=== PATIENT | female | born 1960 | race Caucasian/White ===

== ENCOUNTER 2021-02-01 17:41 | Inpatient (IN) | payer OTHER ==
[~2021-02-01 17:41] MED LIST: ADVIL200 M1 PO; ANTIVERT25 MG PO; AUGMENTIN 500-1 EACH PO; BACLOFEN 10MG T10 MG PO; BENTYL10 MG PO; BUSPAR5 MG PO; CIPRO500 MG PO; COLACE100 MG PO; COMBIVENT RESPIM4 GM INH; HYDROCODON-ACE1 EAC4 PO; K-DUR20 MEQ PO; LEVAQUIN500 MG PO; MEDROL 4MG DOSEP4 MG PO; METRONIDAZOLE500 MG PO; MOXIFLOXACIN H400 MG PO; NORCO 5-325 TA1 EACH PO; ONDANSETRON HCL4 MG PO; PERCOCET 5-3251 EACH PO; PRILOSEC20 MG PO; PRINIVIL10 MG PO; REMERON15 MG PO; SINGULAIR10 MG PO; SYNTHROID25 MCG PO; VALACYCLOVIR1000 MG PO; VENLAFAXINE HC225 MG PO; VENTOLIN (2.5 MG/3 M INH; ZOFRAN8 MG PO
[2021-02-01 18:14] LABS: BASOPHIL 0.6 % (0-2); HGB 14.9 g/dl (12.5-16.0); LYMPHOCYTE 21.1 % (15-48); MCH 35.1 pg (25.0-31.0); MCHC 34.7 g/dL (32.0-36.0); MCV 101.4 fL (78.0-100.0); MONOCYTE 7.4 % (0-12); MPV 8.9 fL (6.0-9.5); NEUTROPHIL 69.6 % (41-80); NRBC 0; PLT 273 K/uL (150-400); RBC 4.24 M/uL (4.20-5.40); RDW 14.6 % (11.5-14.0); WBC 12.2 K/uL (4.0-10.5)
[2021-02-01 18:19] LABS: INR 1.04 (0.9-1.2); PROTHROMBIN TIME 12.9 SECONDS (11.4-13.6)
[2021-02-01 18:21] LABS: D-DIMER 2.92 ug/mLFEU (0.00-0.41)
[2021-02-01 18:28] LABS: ALBUMIN 3.3 g/dL (3.4-5.0); ALKALINE PHOSHATASE 135 U/L (46-116); ALT 41 U/L (14-59); AST 50 U/L (15-37); BILIRUBIN - TOTAL 0.3 mg/dL (0.2-1.0); BUN 5 mg/dL (7-18); BUN/CREAT RATIO (CALC) 10.2 RATIO; CHLORIDE 98 mmol/L (98-107); CO2 (BICARBONATE) 28 mmol/L (21-32); CREATININE 0.49 mg/dL (0.51-0.95); GLOBULIN (CALCULATION) 3.5 g/dL; GLUCOSE 146 mg/dL (74-106); LIPASE >2250 U/L (73-393); POTASSIUM 2.6 mmol/L (3.5-5.1); TOTAL PROTEIN 6.8 g/dL (6.4-8.2)
[2021-02-01 19:34] LABS: BILIRUBIN NEGATIVE (NEGATIVE); BLOOD NEGATIVE Ery/uL (NEGATIVE); CLARITY CLEAR (CLEAR); COLOR YELLOW (YELLOW); GLUCOSE (U) NORMAL (NORMAL); LEUKOCYTES NEGATIVE Leu/uL (NEGATIVE); NITRITE NEGATIVE (NEGATIVE); PROTEIN NEGATIVE (NEGATIVE); SPECIFIC GRAVITY <=1.005 (1.001-1.030); UROBILINOGEN 0.2 mg/dL (0.2-1.0)
[2021-02-01 20:14] LABS: LACTIC ACID 3.9 mmol/L (0.4-1.9)
[2021-02-01] MEDS ORDERED: KLOR-CON M20 T20 MEQ PO (22:07)
[2021-02-01] MEDS ORDERED: ONDANSETRON ODT4 MG PO (22:08)
[2021-02-01] MEDS ORDERED: ANTIVERT25 MG PO (22:10)
[2021-02-01] MEDS ORDERED: GAS RELIEF 8080 MG PO (22:12)
--- NOTE | 2021-02-01 22:40 | NUR ---
Spoke with Ed physician just prior to patient going upstairs regaurding Patient flagging for possible sepsis r/t elevated hr, elevated wbc and lactic acid. Asked ED physician () if patient would be recieving antibiotics for sepsis r/t vs and labs. Md said no because patient had pancreatitis. Notified primary Rn on tcu that would be caring for this patient of sepsis flags, lactic and md notification and response at this time for further and close observation. Upon patient arrival to tcu, warehouse stock clerk helped get patient into bed, obtain vs, and place on monitor. Patient awake/ alet. Patient ambulated to bed. Hr remains mildly elvated. Bp is wnl. Nightshift hospitalist on unit and reviewing chart at this time and is aware.
[2021-02-02 05:28] LABS: BASOPHIL 0.5 % (0-2); EOSINOPHIL 1.3 % (0-5); HCT 36.8 % (37.0-47.0); HGB 12.6 g/dl (12.5-16.0); MCHC 34.2 g/dL (32.0-36.0); MCV 102.2 fL (78.0-100.0); MONOCYTE 8.8 % (0-12); NEUTROPHIL 78.1 % (41-80); NRBC 0; PLT 207 K/uL (150-400); RDW 14.8 % (11.5-14.0); WBC 10.8 K/uL (4.0-10.5)
[2021-02-02 05:46] LABS: ALBUMIN 2.6 g/dL (3.4-5.0); ALKALINE PHOSHATASE 113 U/L (46-116); ALT 31 U/L (14-59); AST 39 U/L (15-37); BILIRUBIN - TOTAL 0.6 mg/dL (0.2-1.0); BUN 4 mg/dL (7-18); BUN/CREAT RATIO (CALC) 8.3 RATIO; CHLORIDE 104 mmol/L (98-107); CHOLESTEROL 126 mg/dL (<200); CO2 (BICARBONATE) 27 mmol/L (21-32); CREATININE 0.48 mg/dL (0.51-0.95); GLOBULIN (CALCULATION) 2.9 g/dL; GLUCOSE 102 mg/dL (74-106); HDL 24 mg/dL (40-60); LDL - DIRECT 72 mg/dL (<100); LIPASE >2250 U/L (73-393); MAGNESIUM 0.9 mg/dL (1.8-2.4); PHOSPHORUS 3.5 mg/dL (2.6-4.7); POTASSIUM 3.1 mmol/L (3.5-5.1); TOTAL PROTEIN 5.5 g/dL (6.4-8.2); TRIGLYCERIDES 152 mg/dL (<150)
[2021-02-03 05:55] LABS: BASOPHIL 0.5 % (0-2); EOSINOPHIL 2.7 % (0-5); HCT 34.1 % (37.0-47.0); HGB 11.5 g/dl (12.5-16.0); LYMPHOCYTE 21.3 % (15-48); MCH 34.8 pg (25.0-31.0); MCHC 33.7 g/dL (32.0-36.0); MCV 103.3 fL (78.0-100.0); MONOCYTE 8.8 % (0-12); MPV 9.5 fL (6.0-9.5); NEUTROPHIL 66.5 % (41-80); NRBC 0; PLT 185 K/uL (150-400); RDW 14.6 % (11.5-14.0); WBC 8.3 K/uL (4.0-10.5)
[2021-02-03 06:11] LABS: IRON % SATURATION 29.2 %SAT (20-50)
[2021-02-03 06:41] LABS: ALBUMIN 2.4 g/dL (3.4-5.0); BILIRUBIN - TOTAL 1.2 mg/dL (0.2-1.0); BUN/CREAT RATIO (CALC) 8.5 RATIO; CREATININE 0.47 mg/dL (0.51-0.95); GLOBULIN (CALCULATION) 3.1 g/dL; MAGNESIUM 1.5 mg/dL (1.8-2.4); PHOSPHORUS 2.8 mg/dL (2.6-4.7); POTASSIUM 3.1 mmol/L (3.5-5.1); TOTAL PROTEIN 5.5 g/dL (6.4-8.2)
--- NOTE | 2021-02-03 10:14 | NUR ---
02/03/21 Ms. Reyes was independent in the home and community prior to admission. She shares a home with a roommate and works at the [employer]. Please monitor for home 02 needs.
[2021-02-04 03:53] LABS: BASOPHIL 0.5 % (0-2); EOSINOPHIL 1.9 % (0-5); HGB 11.8 g/dl (12.5-16.0); MCH 35.1 pg (25.0-31.0); MCHC 33.7 g/dL (32.0-36.0); MCV 104.2 fL (78.0-100.0); MONOCYTE 8.5 % (0-12); MPV 9.1 fL (6.0-9.5); NEUTROPHIL 65.8 % (41-80); NRBC 0; PLT 197 K/uL (150-400); RBC 3.36 M/uL (4.20-5.40); RDW 14.5 % (11.5-14.0); WBC 7.9 K/uL (4.0-10.5)
[2021-02-04 04:12] LABS: ALBUMIN 2.6 g/dL (3.4-5.0); BILIRUBIN - TOTAL 1.1 mg/dL (0.2-1.0); BUN/CREAT RATIO (CALC) 4.5 RATIO; CREATININE 0.44 mg/dL (0.51-0.95); GLOBULIN (CALCULATION) 3.3 g/dL; MAGNESIUM 1.5 mg/dL (1.8-2.4); POTASSIUM 3.1 mmol/L (3.5-5.1); TOTAL PROTEIN 5.9 g/dL (6.4-8.2)
--- NOTE | 2021-02-04 05:46 | NUR ---
0400 PT VERY AGITATED AND ANXIOUS WANTING TO LEAVE AND SMOKE. WANTING ANTIDEPRESSANTS "THATS WHY IM SUCH A MESS." PT. IS TEARFUL. LOOKED UP HOME MEDS AND NO ANTIDEPRESSANTS LISTED. BRENDAN V[place]LELA NOTIFIED. PHEMOBARBITAL 130MG AND ATIVAN 1 MG GIVEN. 0500 PT FOUND SMOKING IN ROOM. CIGS CONFISCATED. AND PHENOBARBITAL 130MG GIVEN. 0530 PT RESTING IN BED WITH EYES CLOSED AND NO DISTRESS. WILL CONTINUE TO MONITOR.
[2021-02-04] MEDS ORDERED: COMBIVENT RESPIM4 GM INH (09:26)
[2021-02-04] MEDS ORDERED: DULERA 100 MCG8.8 GM INH (09:26)
--- NOTE | 2021-02-04 12:19 | NUR ---
DC INSTRUCTIONS DISCUSSED WITH PATIENT WHO VERBALIZED UNDERSTANDING. NEW PRESCRIPTIONS AT [facility]. IV REMOVED BY PATIENT EARLY THIS MORNING. CAB VOUCHER OBTAINED FOR TRANSPORTATION HOME. ALL QUESTIONS AND CONCERNS ANSWERED. NO CONCERNED. WILL DC HOME.
[2021-03-10] MEDS ORDERED: VENLAFAXINE HC225 MG PO (16:53)
[2021-03-10] MEDS ORDERED: TURMERIC 500 M1 EACH PO (16:54)
[2021-03-10] MEDS ORDERED: GRAPE SEED50 M1 PO (16:55)
[2021-03-10] MEDS ORDERED: VITAMIN C1000 MG PO (16:55)
== END 2021-02-04 12:20 | disposition home or self-care (01) | DRG 439 ==
LOC: FER 17:41 → FTCU 20:07
PROVIDERS: Emergency Medicine; Nurse Practitioner; ADMIT Internal Medicine
PROC: HZ2ZZZZ Detoxification Services for Substance Abuse Treatment (ICD-10-PCS; principal; 2021-02-01)
DX: K85.20 Alcohol induced acute pancreatitis without necrosis or infection (principal); R65.10 Systemic inflammatory response syndrome (SIRS) of non-infectious origin without acute organ dysfunction; E87.2 Acidosis; F10.230 Alcohol dependence with withdrawal, uncomplicated; J44.9 Chronic obstructive pulmonary disease, unspecified; I10 Essential (primary) hypertension; F10.220 Alcohol dependence with intoxication, uncomplicated; F41.9 Anxiety disorder, unspecified; F32.9 Major depressive disorder, single episode, unspecified; Z20.822 Contact with and (suspected) exposure to COVID-19; E78.5 Hyperlipidemia, unspecified; F17.210 Nicotine dependence, cigarettes, uncomplicated; K57.90 Diverticulosis of intestine, part unspecified, without perforation or abscess without bleeding; E03.9 Hypothyroidism, unspecified; Z98.41 Cataract extraction status, right eye; Z98.42 Cataract extraction status, left eye
CPT/HCPCS: 36415; 36600; 71046; 71275; 80053; 80061; 81003; 82150; 82550; 82607; 82803; 83540; 83550; 83605; 83690; 83735; 83880; 84100; 84145; 84484; 85025; 85379; 85610; 85730; 94010; 94640; C9113; G0480; J0610; J1170; J1650; J2060; J2405; J2560; J3411; J3475; J3480; J7030; J7120; Q9967; U0002

== ENCOUNTER → 2021-03-15 | Day surgery (SDC) | payer OTHER ==
[~2021-03-15] MED LIST changes: +DULERA 100 MCG8.8 GM INH; +GAS RELIEF 8080 MG PO; +GRAPE SEED50 M1 PO; +KLOR-CON M20 T20 MEQ PO; +ONDANSETRON ODT4 MG PO; +TURMERIC 500 M1 EACH PO; +VITAMIN C1000 MG PO
[2021-03-15 11:18] LABS: ALBUMIN 3.2 g/dL (3.4-5.0); BILIRUBIN - TOTAL 0.4 mg/dL (0.2-1.0); BUN/CREAT RATIO (CALC) 8.2 RATIO; CREATININE 0.49 mg/dL (0.51-0.95); GLOBULIN (CALCULATION) 3.6 g/dL; POTASSIUM 3.8 mmol/L (3.5-5.1); TOTAL PROTEIN 6.8 g/dL (6.4-8.2)
== END | disposition home or self-care (01) ==
LOC: FAS 09:44
PROVIDERS: Surgery
DX: K57.30 Diverticulosis of large intestine without perforation or abscess without bleeding (principal); K31.9 Disease of stomach and duodenum, unspecified; K64.4 Residual hemorrhoidal skin tags; K21.9 Gastro-esophageal reflux disease without esophagitis; K85.20 Alcohol induced acute pancreatitis without necrosis or infection; I10 Essential (primary) hypertension; E03.9 Hypothyroidism, unspecified; Z82.49 Family history of ischemic heart disease and other diseases of the circulatory system
CPT/HCPCS: 36415; 80053; 82150; 83690; J2704; J7120

== ENCOUNTER 2021-03-17 12:28 | Emergency (ER) | payer OTHER ==
[2021-03-17 13:04] LABS: BASOPHIL 0.7 % (0-2); EOSINOPHIL 1.1 % (0-5); HCT 40.1 % (37.0-47.0); HGB 13.6 g/dl (12.5-16.0); LYMPHOCYTE 10.4 % (15-48); MCHC 33.9 g/dL (32.0-36.0); MCV 100.3 fL (78.0-100.0); MONOCYTE 6.2 % (0-12); MPV 8.6 fL (6.0-9.5); NEUTROPHIL 81.2 % (41-80); NRBC 0; PLT 504 K/uL (150-400); RDW 12.7 % (11.5-14.0); WBC 14.3 K/uL (4.0-10.5)
[2021-03-17 13:14] LABS: INR 1.01 (0.9-1.2); PROTHROMBIN TIME 12.6 SECONDS (11.4-13.6); PTT 29.8 SECONDS (22.2-34.7)
[2021-03-17 13:21] LABS: ALBUMIN 3.5 g/dL (3.4-5.0); ALKALINE PHOSHATASE 92 U/L (46-116); ALT 20 U/L (14-59); AST 21 U/L (15-37); BILIRUBIN - TOTAL 0.4 mg/dL (0.2-1.0); BUN 5 mg/dL (7-18); BUN/CREAT RATIO (CALC) 8.9 RATIO; CHLORIDE 100 mmol/L (98-107); CO2 (BICARBONATE) 26 mmol/L (21-32); CREATININE 0.56 mg/dL (0.51-0.95); GLOBULIN (CALCULATION) 3.9 g/dL; GLUCOSE 123 mg/dL (74-106); LIPASE 308 U/L (73-393); POTASSIUM 3.4 mmol/L (3.5-5.1); TOTAL PROTEIN 7.4 g/dL (6.4-8.2)
[2021-03-17 14:43] LABS: ECSTASY (MDMA) NEGATIVE (NEGATIVE); MARIJUANA (THC) NEGATIVE (NEGATIVE); METHADONE NEGATIVE (NEGATIVE); OPIATES NEGATIVE (NEGATIVE)
[2021-03-17 14:44] LABS: AMPHETAMINES NEGATIVE (NEGATIVE); BARBITURATES POSITIVE (NEGATIVE); OXYCODONE NEGATIVE (NEGATIVE)
== END 2021-03-17 18:15 | disposition other institution (70) ==
LOC: FER 12:28
PROVIDERS: Emergency Medicine
DX: K86.3 Pseudocyst of pancreas (principal); F17.210 Nicotine dependence, cigarettes, uncomplicated; Z98.890 Other specified postprocedural states; Z87.19 Personal history of other diseases of the digestive system; Z20.822 Contact with and (suspected) exposure to COVID-19
CPT/HCPCS: 36415; 74022; 80053; 80305; 83605; 83690; 85025; 85610; 85730; 93005; G0480; J2270; J2405; Q9967; U0002

== ENCOUNTER 2021-08-15 19:00 | Emergency (ER) | payer OTHER | END 2021-08-15 21:06 | disposition home or self-care (01) | LOC: FER 19:00 | DX: M25.552 Pain in left hip (principal); M79.652 Pain in left thigh; F17.200 Nicotine dependence, unspecified, uncomplicated | CPT/HCPCS: 73502; J1885 ==

== ENCOUNTER 2021-09-03 20:23 | Emergency (ER) | payer OTHER ==
[2021-09-03] MEDS ORDERED: FLEXERIL5 MG PO (21:09)
== END 2021-09-03 21:35 | disposition home or self-care (01) ==
LOC: FER 20:23
DX: M54.6 Pain in thoracic spine (principal); I10 Essential (primary) hypertension; J44.9 Chronic obstructive pulmonary disease, unspecified; F17.200 Nicotine dependence, unspecified, uncomplicated
CPT/HCPCS: J1885

== ENCOUNTER 2021-09-07 20:49 | Emergency (ER) | payer OTHER ==
[~2021-09-07 20:49] MED LIST changes: +FLEXERIL5 MG PO
[2021-09-07] MEDS ORDERED: MOBIC15 MG PO (21:27)
== END 2021-09-07 21:40 | disposition home or self-care (01) ==
LOC: FER 20:49
DX: G89.29 Other chronic pain (principal); M54.6 Pain in thoracic spine; I10 Essential (primary) hypertension; E11.9 Type 2 diabetes mellitus without complications; F17.210 Nicotine dependence, cigarettes, uncomplicated
CPT/HCPCS: J1885

== ENCOUNTER 2021-11-22 15:45 | Emergency (ER) | payer OTHER ==
[~2021-11-22 15:45] MED LIST changes: +MOBIC15 MG PO
[2021-11-22 16:38] LABS: BASOPHIL 0.6 % (0-2); EOSINOPHIL 0.7 % (0-5); HCT 31.1 % (37.0-47.0); HGB 10.4 g/dl (12.5-16.0); LYMPHOCYTE 18.3 % (15-48); MCH 32.6 pg (25.0-31.0); MCHC 33.4 g/dL (32.0-36.0); MCV 97.5 fL (78.0-100.0); MONOCYTE 8.4 % (0-12); NRBC 0; PLT 417 K/uL (150-400); RBC 3.19 M/uL (4.20-5.40); RDW 13.2 % (11.5-14.0); WBC 9.9 K/uL (4.0-10.5)
[2021-11-22 16:46] LABS: INR 1.05 (0.9-1.2); PROTHROMBIN TIME 13.1 SECONDS (11.8-13.4); PTT 24.7 SECONDS (24.4-34.7)
[2021-11-22 16:53] LABS: BILIRUBIN - TOTAL 0.2 mg/dL (0.2-1.0); CREATININE 0.5 mg/dL (0.51-0.95); GLOBULIN (CALCULATION) 3.5 g/dL; POTASSIUM 3.7 mmol/L (3.5-5.1); TOTAL PROTEIN 6.5 g/dL (6.4-8.2)
[2021-11-22 18:26] LABS: IRON % SATURATION 26.6 %SAT (20-50)
== END 2021-11-22 23:51 | disposition home or self-care (01) ==
LOC: FER 15:45
PROVIDERS: Emergency Medicine
DX: M48.54XA Collapsed vertebra, not elsewhere classified, thoracic region, initial encounter for fracture (principal); F17.210 Nicotine dependence, cigarettes, uncomplicated; Z13.89 Encounter for screening for other disorder; Z20.822 Contact with and (suspected) exposure to COVID-19
CPT/HCPCS: 36415; 71045; 71275; 80053; 83540; 83550; 84484; 85025; 85379; 85610; 85730; 93005; G0480; J3411; J3475; J7030; Q9967; U0002

== ENCOUNTER 2022-03-11 06:05 | Emergency (ER) | payer OTHER ==
[2022-03-11 06:44] LABS: BASOPHIL 0.5 % (0-2); EOSINOPHIL 0.9 % (0-5); HCT 48.3 % (37.0-47.0); HGB 16.3 g/dl (12.5-16.0); LYMPHOCYTE 30.6 % (15-48); MCH 32.8 pg (25.0-31.0); MCHC 33.7 g/dL (32.0-36.0); MCV 97.2 fL (78.0-100.0); MONOCYTE 7.8 % (0-12); MPV 9.2 fL (6.0-9.5); NEUTROPHIL 59.8 % (41-80); NRBC 0; PLT 306 K/uL (150-400); RBC 4.97 M/uL (4.20-5.40); RDW 14.8 % (11.5-14.0); WBC 10.3 K/uL (4.0-10.5)
[2022-03-11 07:04] LABS: BILIRUBIN - TOTAL 1.8 mg/dL (0.2-1.0); BUN/CREAT RATIO (CALC) 13.7 RATIO; CREATININE 0.73 mg/dL (0.51-0.95); GLOBULIN (CALCULATION) 4.3 g/dL; POTASSIUM 3.2 mmol/L (3.5-5.1); TOTAL PROTEIN 8.3 g/dL (6.4-8.2)
[2022-03-11] MEDS ORDERED: AFRIN15 M1 (07:04)
== END 2022-03-11 08:29 | disposition home or self-care (01) ==
LOC: FER 06:05
PROVIDERS: Emergency Medicine
DX: R04.0 Epistaxis (principal); K21.9 Gastro-esophageal reflux disease without esophagitis; I10 Essential (primary) hypertension; F17.200 Nicotine dependence, unspecified, uncomplicated; Z28.310 Unvaccinated for COVID-19; Z79.899 Other long term (current) drug therapy
CPT/HCPCS: 36415; 80053; 85025; 93005

== ENCOUNTER 2022-03-19 15:29 | Day surgery (SDCO) | payer OTHER ==
[~2022-03-19] VITALS: Ht 154.9 cm; Wt 52.9 kg
[~2022-03-19 15:29] MED LIST changes: +AFRIN15 M1
[2022-03-19 16:40] LABS: BASOPHIL 0.5 % (0-2); EOSINOPHIL 0.4 % (0-5); HCT 40.5 % (37.0-47.0); HGB 14.6 g/dl (12.5-16.0); LYMPHOCYTE 9.4 % (15-48); MCH 33.5 pg (25.0-31.0); MONOCYTE 5.8 % (0-12); MPV 8.5 fL (6.0-9.5); NEUTROPHIL 83.5 % (41-80); NRBC 0; PLT 318 K/uL (150-400); RBC 4.36 M/uL (4.20-5.40); WBC 14.1 K/uL (4.0-10.5)
[2022-03-19 16:50] LABS: INR 1.07 (0.9-1.2); PROTHROMBIN TIME 13.3 SECONDS (11.8-13.4); PTT 26.7 SECONDS (24.4-34.7)
[2022-03-19 16:51] LABS: D-DIMER 1.04 ug/mLFEU (0.00-0.41)
[2022-03-19 16:57] LABS: CORONAVIRUS 2019 SARS-COV-2 NEGATIVE (NEGATIVE); INFLUENZA A NAA NEGATIVE (NEGATIVE)
[2022-03-19 16:59] LABS: ALBUMIN 3.7 g/dL (3.4-5.0); ALKALINE PHOSHATASE 154 U/L (46-116); ALT 48 U/L (14-59); AST 114 U/L (15-37); BILIRUBIN - TOTAL 1.2 mg/dL (0.2-1.0); BUN 9 mg/dL (7-18); BUN/CREAT RATIO (CALC) 11.2 RATIO; CHLORIDE 99 mmol/L (98-107); CO2 (BICARBONATE) 28 mmol/L (21-32); GLOBULIN (CALCULATION) 3.7 g/dL; GLUCOSE 111 mg/dL (74-106); POTASSIUM 2.8 mmol/L (3.5-5.1); TOTAL PROTEIN 7.4 g/dL (6.4-8.2)
[2022-03-19 17:02] LABS: MCV 92.9 fL (78.0-100.0)
[2022-03-19 17:29] LABS: LACTIC ACID 1.8 mmol/L (0.4-1.9)
[2022-03-19 21:15] LABS: AMYLASE 41 U/L (25-115); LIPASE 178 U/L (73-393)
[2022-03-19 23:33] LABS: BILIRUBIN NEGATIVE (NEGATIVE); BLOOD NEGATIVE Ery/uL (NEGATIVE); CLARITY CLEAR (CLEAR); COLOR YELLOW (YELLOW); GLUCOSE (U) NORMAL (NORMAL); LEUKOCYTES NEGATIVE Leu/uL (NEGATIVE); NITRITE NEGATIVE (NEGATIVE); PROTEIN NEGATIVE (NEGATIVE); UROBILINOGEN 0.2 mg/dL (0.2-1.0); pH 7.5 (5.0-9.0)
[2022-03-20 00:09] LABS: BUN/CREAT RATIO (CALC) 12.8 RATIO; CREATININE 0.86 mg/dL (0.51-0.95); POTASSIUM 3.4 mmol/L (3.5-5.1)
[2022-03-20 08:50] LABS: ALBUMIN 3.5 g/dL (3.4-5.0); ALKALINE PHOSHATASE 151 U/L (46-116); ALT 46 U/L (14-59); AST 88 U/L (15-37); BILIRUBIN - TOTAL 1.2 mg/dL (0.2-1.0); BUN 13 mg/dL (7-18); BUN/CREAT RATIO (CALC) 15.3 RATIO; CHLORIDE 101 mmol/L (98-107); CO2 (BICARBONATE) 21 mmol/L (21-32); CREATININE 0.85 mg/dL (0.51-0.95); GLOBULIN (CALCULATION) 3.6 g/dL; GLUCOSE 113 mg/dL (74-106); LIPASE 116 U/L (73-393); POTASSIUM 3.7 mmol/L (3.5-5.1); TOTAL PROTEIN 7.1 g/dL (6.4-8.2)
[2022-03-20 08:51] LABS: MAGNESIUM 2.5 mg/dL (1.8-2.4)
--- NOTE | 2022-03-20 22:47 | NUR ---
PATIENTS CIWA NOTED AT 7, NO MEDICATION NEEDED AT THIS TIME, WILL RE-ASSESS AT 0430
[2022-03-21 07:30] LABS: BASOPHIL 0.1 % (0-2); EOSINOPHIL 0.1 % (0-5); HCT 38.2 % (37.0-47.0); HGB 13.2 g/dl (12.5-16.0); LYMPHOCYTE 20.1 % (15-48); MCH 33.2 pg (25.0-31.0); MCHC 34.6 g/dL (32.0-36.0); MCV 96.2 fL (78.0-100.0); MONOCYTE 8.5 % (0-12); NEUTROPHIL 70.9 % (41-80); NRBC 0; PLT 239 K/uL (150-400); RBC 3.97 M/uL (4.20-5.40); RDW 15.9 % (11.5-14.0); WBC 9.6 K/uL (4.0-10.5)
[2022-03-21 08:03] LABS: ALBUMIN 3.2 g/dL (3.4-5.0); BILIRUBIN - TOTAL 1.2 mg/dL (0.2-1.0); BUN/CREAT RATIO (CALC) 16.9 RATIO; CREATININE 0.71 mg/dL (0.51-0.95); GLOBULIN (CALCULATION) 3.4 g/dL; TOTAL PROTEIN 6.6 g/dL (6.4-8.2)
[2022-03-21] MEDS ORDERED: PREDNISONE 20MG20 MG PO (14:22)
== END 2022-03-21 14:50 | disposition home or self-care (01) ==
LOC: FER 15:29 → FMS 21:26
PROVIDERS: Emergency Medicine; Internal Medicine; Nurse Practitioner Acute Care; ADMIT Internal Medicine
DX: J44.1 Chronic obstructive pulmonary disease with (acute) exacerbation (principal); K85.90 Acute pancreatitis without necrosis or infection, unspecified; F10.10 Alcohol abuse, uncomplicated; E78.5 Hyperlipidemia, unspecified; I10 Essential (primary) hypertension; K85.20 Alcohol induced acute pancreatitis without necrosis or infection; E87.3 Alkalosis; R65.10 Systemic inflammatory response syndrome (SIRS) of non-infectious origin without acute organ dysfunction; E87.6 Hypokalemia; I49.3 Ventricular premature depolarization; F41.8 Other specified anxiety disorders; I45.10 Unspecified right bundle-branch block; F17.210 Nicotine dependence, cigarettes, uncomplicated; Z20.822 Contact with and (suspected) exposure to COVID-19
CPT/HCPCS: 36415; 36600; 71045; 71275; 80048; 80053; 81003; 82150; 82607; 82803; 83605; 83690; 83735; 84145; 84439; 84443; 84484; 85025; 85379; 85610; 85730; 86140; 87040; 93005; 94640; 94664; 94762; G0378; G0480; J1650; J1885; J2405; J2543; J2550; J2930; J3411; J3475; J3480; J7030; J7120; J7512; Q9967; U0002

== ENCOUNTER 2022-03-30 03:58 | Inpatient (IN) | payer OTHER ==
[~2022-03-30] VITALS: Ht 154.9 cm; Wt 61.4 kg
[~2022-03-30 03:58] MED LIST changes: +PREDNISONE 20MG20 MG PO
[2022-03-30 04:41] LABS: BASOPHIL 0.1 % (0-2); EOSINOPHIL 0 % (0-5); HCT 36.7 % (37.0-47.0); HGB 12.6 g/dl (12.5-16.0); LYMPHOCYTE 6.4 % (15-48); MCH 33.9 pg (25.0-31.0); MCHC 34.3 g/dL (32.0-36.0); MCV 98.7 fL (78.0-100.0); MONOCYTE 6.4 % (0-12); MPV 8.1 fL (6.0-9.5); NEUTROPHIL 86.3 % (41-80); NRBC 0; PLT 324 K/uL (150-400); RBC 3.72 M/uL (4.20-5.40); WBC 15.9 K/uL (4.0-10.5)
[2022-03-30 04:55] LABS: BUN/CREAT RATIO (CALC) 6.8 RATIO; CREATININE 0.59 mg/dL (0.51-0.95); POTASSIUM 4.2 mmol/L (3.5-5.1)
[2022-03-30 05:09] LABS: CORONAVIRUS 2019 SARS-COV-2 NEGATIVE (NEGATIVE); INFLUENZA A NAA NEGATIVE (NEGATIVE)
[2022-03-30 06:20] LABS: BILIRUBIN NEGATIVE (NEGATIVE); BLOOD NEGATIVE Ery/uL (NEGATIVE); CLARITY CLEAR (CLEAR); COLOR YELLOW (YELLOW); GLUCOSE (U) NORMAL (NORMAL); LEUKOCYTES NEGATIVE Leu/uL (NEGATIVE); NITRITE NEGATIVE (NEGATIVE); PROTEIN NEGATIVE (NEGATIVE); SPECIFIC GRAVITY <=1.005 (1.001-1.030); UROBILINOGEN 0.2 mg/dL (0.2-1.0)
[2022-03-30 06:38] LABS: AMPHETAMINES NEGATIVE (NEGATIVE); BARBITURATES NEGATIVE (NEGATIVE); ECSTASY (MDMA) NEGATIVE (NEGATIVE); MARIJUANA (THC) NEGATIVE (NEGATIVE); METHADONE NEGATIVE (NEGATIVE); OPIATES NEGATIVE (NEGATIVE); OXYCODONE NEGATIVE (NEGATIVE)
[2022-03-30 06:52] LABS: ALBUMIN 3.9 g/dL (3.4-5.0); BILIRUBIN - TOTAL 0.3 mg/dL (0.2-1.0); BUN/CREAT RATIO (CALC) 10.2 RATIO; CREATININE 0.59 mg/dL (0.51-0.95); GLOBULIN (CALCULATION) 3.8 g/dL; POTASSIUM 4.2 mmol/L (3.5-5.1); TOTAL PROTEIN 7.7 g/dL (6.4-8.2)
[2022-03-30 06:55] LABS: LACTIC ACID 6.5 mmol/L (0.4-1.9)
[2022-03-31 05:56] LABS: BASOPHIL 0.3 % (0-2); EOSINOPHIL 0.2 % (0-5); HCT 39.1 % (37.0-47.0); HGB 12.8 g/dl (12.5-16.0); LYMPHOCYTE 14.1 % (15-48); MCH 33.9 pg (25.0-31.0); MCHC 32.7 g/dL (32.0-36.0); MONOCYTE 7.5 % (0-12); MPV 8.2 fL (6.0-9.5); NEUTROPHIL 77.4 % (41-80); NRBC 0; PLT 334 K/uL (150-400); RBC 3.78 M/uL (4.20-5.40); RDW 15.2 % (11.5-14.0); WBC 12.5 K/uL (4.0-10.5)
[2022-03-31 05:59] LABS: MCV 103.4 fL (78.0-100.0)
[2022-03-31 06:09] LABS: INR 0.99 (0.9-1.2); PROTHROMBIN TIME 12.5 SECONDS (11.8-13.4)
[2022-03-31 06:19] LABS: ALBUMIN 3.7 g/dL (3.4-5.0); BILIRUBIN - TOTAL 1.3 mg/dL (0.2-1.0); BUN/CREAT RATIO (CALC) 8.5 RATIO; CREATININE 1.18 mg/dL (0.51-0.95); GLOBULIN (CALCULATION) 3.4 g/dL; POTASSIUM 4.8 mmol/L (3.5-5.1); TOTAL PROTEIN 7.1 g/dL (6.4-8.2)
[2022-04-02 05:47] LABS: BASOPHIL 0.4 % (0-2); EOSINOPHIL 0.9 % (0-5); HCT 31.4 % (37.0-47.0); HGB 10.2 g/dl (12.5-16.0); MCH 33.8 pg (25.0-31.0); MCHC 32.5 g/dL (32.0-36.0); MONOCYTE 5.3 % (0-12); MPV 8.5 fL (6.0-9.5); NEUTROPHIL 70.8 % (41-80); NRBC 0; PLT 252 K/uL (150-400); RBC 3.02 M/uL (4.20-5.40); RDW 15.2 % (11.5-14.0)
[2022-04-02 06:00] LABS: WBC 9.4 K/uL (4.0-10.5)
[2022-04-02 06:12] LABS: ALBUMIN 2.5 g/dL (3.4-5.0); BILIRUBIN - TOTAL 0.2 mg/dL (0.2-1.0); BUN/CREAT RATIO (CALC) 5.4 RATIO; CREATININE 0.74 mg/dL (0.51-0.95); MAGNESIUM 1.4 mg/dL (1.8-2.4); POTASSIUM 3.6 mmol/L (3.5-5.1); TOTAL PROTEIN 5.5 g/dL (6.4-8.2)
[2022-04-03 06:06] LABS: BASOPHIL 0.5 % (0-2); EOSINOPHIL 1.6 % (0-5); HCT 32.7 % (37.0-47.0); HGB 11.1 g/dl (12.5-16.0); MCH 34.6 pg (25.0-31.0); MCHC 33.9 g/dL (32.0-36.0); MCV 101.9 fL (78.0-100.0); MONOCYTE 7.9 % (0-12); MPV 8.7 fL (6.0-9.5); NEUTROPHIL 67.3 % (41-80); NRBC 0; PLT 274 K/uL (150-400); RBC 3.21 M/uL (4.20-5.40); WBC 7.7 K/uL (4.0-10.5)
[2022-04-03 06:34] LABS: BUN/CREAT RATIO (CALC) 7.7 RATIO; CREATININE 0.52 mg/dL (0.51-0.95); POTASSIUM 3.5 mmol/L (3.5-5.1)
[2022-04-03] MEDS ORDERED: CUBICIN RF500 MG IV (09:47)
[2022-04-03] MEDS ORDERED: VITAMIN B-1100 M1 PO (09:47)
[2022-04-03] MEDS ORDERED: MAG-OXIDE 400M400 MG PO (09:47)
[2022-04-03] MEDS ORDERED: FOLIC ACID1 MG PO (09:47)
[2022-04-03] MEDS ORDERED: FLORANEX TABLE1 EACH PO (09:47)
[2022-04-03] MEDS ORDERED: AMOX TR-K CLV1 EAC4 PO (09:47)
== END 2022-04-03 17:10 | disposition home or self-care (01) | DRG 872 ==
LOC: FER 03:58 → FTCU 10:23
PROVIDERS: Allergy & Immunology Allergy; Family Medicine; Internal Medicine; Nurse Practitioner; ADMIT Internal Medicine
PROC: 3E03329 Introduction of Other Anti-infective into Peripheral Vein, Percutaneous Approach (ICD-10-PCS; principal; 2022-03-30)
PROC: HZ2ZZZZ Detoxification Services for Substance Abuse Treatment (ICD-10-PCS; 2022-03-31)
PROC: 02HV33Z Insertion of Infusion Device into Superior Vena Cava, Percutaneous Approach (ICD-10-PCS; 2022-04-03)
DX: A41.81 Sepsis due to Enterococcus (principal); N17.9 Acute kidney failure, unspecified; F10.139 Alcohol abuse with withdrawal, unspecified; E87.1 Hypo-osmolality and hyponatremia; K57.32 Diverticulitis of large intestine without perforation or abscess without bleeding; Z16.11 Resistance to penicillins; K86.1 Other chronic pancreatitis; M48.56XA Collapsed vertebra, not elsewhere classified, lumbar region, initial encounter for fracture; R65.20 Severe sepsis without septic shock; A40.0 Sepsis due to streptococcus, group A; Z20.822 Contact with and (suspected) exposure to COVID-19; Z28.310 Unvaccinated for COVID-19; D53.9 Nutritional anemia, unspecified; E83.42 Hypomagnesemia; J44.9 Chronic obstructive pulmonary disease, unspecified; F17.210 Nicotine dependence, cigarettes, uncomplicated; K59.00 Constipation, unspecified; F41.9 Anxiety disorder, unspecified; F32.A Depression, unspecified; E78.5 Hyperlipidemia, unspecified; Z79.899 Other long term (current) drug therapy; Z99.81 Dependence on supplemental oxygen
CPT/HCPCS: 36415; 70450; 71045; 71250; 72131; 80048; 80053; 80305; 81003; 83605; 83690; 83735; 83880; 84145; 84484; 85025; 85610; 87040; 87077; 87186; 93005; 94640; 94760; 94762; 97162; 97166; G0480; J0878; J1170; J1650; J1885; J2060; J2405; J2543; J2560; J3360; J7030; U0002

== ENCOUNTER 2022-06-01 12:15 | Emergency (ER) | payer OTHER ==
[~2022-06-01 12:15] MED LIST changes: +AMOX TR-K CLV1 EAC4 PO; +CUBICIN RF500 MG IV; +FLORANEX TABLE1 EACH PO; +FOLIC ACID1 MG PO; +MAG-OXIDE 400M400 MG PO; +VITAMIN B-1100 M1 PO
[2022-06-01 13:33] LABS: CORONAVIRUS 2019 SARS-COV-2 NEGATIVE (NEGATIVE); INFLUENZA A NAA NEGATIVE (NEGATIVE)
[2022-06-01 13:46] LABS: BASOPHIL 0.6 % (0-2); EOSINOPHIL 0.3 % (0-5); HCT 41.6 % (37.0-47.0); HGB 13.7 g/dl (12.5-16.0); LYMPHOCYTE 24.8 % (15-48); MCH 32.9 pg (25.0-31.0); MCHC 32.9 g/dL (32.0-36.0); MCV 99.8 fL (78.0-100.0); MONOCYTE 8.5 % (0-12); MPV 8.1 fL (6.0-9.5); NEUTROPHIL 65.4 % (41-80); NRBC 0; PLT 402 K/uL (150-400); RBC 4.17 M/uL (4.20-5.40); RDW 12.9 % (11.5-14.0); WBC 10.7 K/uL (4.0-10.5)
[2022-06-01 14:45] LABS: LACTIC ACID 3.3 mmol/L (0.4-1.9)
[2022-06-01 17:35] LABS: CREATININE 0.53 mg/dL (0.51-0.95); POTASSIUM 3.9 mmol/L (3.5-5.1)
[2022-06-01 17:36] LABS: ALBUMIN 3.7 g/dL (3.4-5.0); BILIRUBIN - TOTAL 0.3 mg/dL (0.2-1.0); GLOBULIN (CALCULATION) 3.6 g/dL; TOTAL PROTEIN 7.3 g/dL (6.4-8.2)
== END 2022-06-01 15:14 | disposition left against medical advice (07) ==
LOC: FER 12:15
PROVIDERS: Physician Assistant
DX: B34.9 Viral infection, unspecified (principal); J44.9 Chronic obstructive pulmonary disease, unspecified; I10 Essential (primary) hypertension; K21.9 Gastro-esophageal reflux disease without esophagitis; F17.210 Nicotine dependence, cigarettes, uncomplicated; E03.9 Hypothyroidism, unspecified; Z53.29 Procedure and treatment not carried out because of patient's decision for other reasons; Z20.822 Contact with and (suspected) exposure to COVID-19; Z28.310 Unvaccinated for COVID-19; Z79.890 Hormone replacement therapy; Z79.899 Other long term (current) drug therapy
CPT/HCPCS: 36415; 36600; 80053; 82803; 83605; 84484; 85025; 93005; U0002

== ENCOUNTER 2022-06-24 17:28 | Emergency (ER) | payer OTHER ==
[2022-06-24 20:15] LABS: BILIRUBIN NEGATIVE (NEGATIVE); BLOOD NEGATIVE Ery/uL (NEGATIVE); CLARITY CLEAR (CLEAR); COLOR YELLOW (YELLOW); GLUCOSE (U) NORMAL (NORMAL); LEUKOCYTES NEGATIVE Leu/uL (NEGATIVE); NITRITE NEGATIVE (NEGATIVE); PROTEIN TRACE (LOW) mg/dL (NEGATIVE); SPECIFIC GRAVITY >=1.030 (1.001-1.030); pH 5.5 (5.0-9.0)
[2022-06-24 20:17] LABS: BASOPHIL 0.4 % (0-2); EOSINOPHIL 0.5 % (0-5); HCT 42.5 % (37.0-47.0); HGB 13.8 g/dl (12.5-16.0); LYMPHOCYTE 16.2 % (15-48); MCH 31.1 pg (25.0-31.0); MCHC 32.5 g/dL (32.0-36.0); MCV 95.7 fL (78.0-100.0); MONOCYTE 2.7 % (0-12); MPV 8.1 fL (6.0-9.5); NEUTROPHIL 79.9 % (41-80); NRBC 0; PLT 508 K/uL (150-400); RBC 4.44 M/uL (4.20-5.40); RDW 13.3 % (11.5-14.0); WBC 12.9 K/uL (4.0-10.5)
[2022-06-24 20:27] LABS: URINARY WBC RARE
[2022-06-24 20:34] LABS: BUN/CREAT RATIO (CALC) 13.7 RATIO; CREATININE 0.73 mg/dL (0.51-0.95); POTASSIUM 3.4 mmol/L (3.5-5.1)
[2022-06-24] MEDS ORDERED: NORCO 5-325 TA1 EACH PO (23:01)
[2022-06-27] MEDS ORDERED: MOBIC7.5 MG PO (10:53)
[2022-06-27] MEDS ORDERED: ELIQUIS5 MG PO (10:54)
[2022-06-27] MEDS ORDERED: KETOROLAC TROME10 MG PO (10:58)
== END 2022-06-24 23:46 | disposition home or self-care (01) ==
LOC: FER 17:28
PROVIDERS: Nurse Practitioner Family
DX: N20.0 Calculus of kidney (principal); C25.9 Malignant neoplasm of pancreas, unspecified; Z28.310 Unvaccinated for COVID-19
CPT/HCPCS: 36415; 80048; 81001; 84484; 85025; 93005; G0480; J1100; J1170; J1885; J2270; J7030

== ENCOUNTER 2022-06-27 02:49 | Day surgery (SDCO) | payer OTHER ==
[~2022-06-27] VITALS: Ht 154.9 cm; Wt 55.0 kg
[2022-06-27 03:28] LABS: BASOPHIL 0.3 % (0-2); EOSINOPHIL 0.3 % (0-5); HCT 36.1 % (37.0-47.0); LYMPHOCYTE 23.3 % (15-48); MCH 31.7 pg (25.0-31.0); MCHC 33.2 g/dL (32.0-36.0); MCV 95.5 fL (78.0-100.0); MONOCYTE 7.1 % (0-12); MPV 8.1 fL (6.0-9.5); NEUTROPHIL 68.5 % (41-80); NRBC 0; PLT 377 K/uL (150-400); RBC 3.78 M/uL (4.20-5.40); RDW 13.9 % (11.5-14.0); WBC 11.9 K/uL (4.0-10.5)
[2022-06-27 04:06] LABS: ALBUMIN 3.4 g/dL (3.4-5.0); BILIRUBIN - TOTAL 0.1 mg/dL (0.2-1.0); BUN/CREAT RATIO (CALC) 13.3 RATIO; CREATININE 0.6 mg/dL (0.51-0.95); GLOBULIN (CALCULATION) 3.2 g/dL; POTASSIUM 2.8 mmol/L (3.5-5.1); TOTAL PROTEIN 6.6 g/dL (6.4-8.2)
[2022-06-27 05:40] LABS: AMPHETAMINES NEGATIVE (NEGATIVE); BARBITURATES NEGATIVE (NEGATIVE); ECSTASY (MDMA) NEGATIVE (NEGATIVE); MARIJUANA (THC) NEGATIVE (NEGATIVE); METHADONE NEGATIVE (NEGATIVE); OPIATES POSITIVE (NEGATIVE); OXYCODONE NEGATIVE (NEGATIVE)
[2022-06-27 08:58] LABS: INR 0.99 (0.9-1.2); PROTHROMBIN TIME 12.8 SECONDS (11.9-13.9)
[2022-06-27 09:13] LABS: HCT 39.5 % (37.0-47.0)
[2022-06-27] MEDS ORDERED: CYANOCOBALAMIN IM (10:51)
[2022-06-27] MEDS ORDERED: VENLAFAXINE HC225 MG PO (10:52)
[2022-06-27] MEDS ORDERED: PRINIVIL20 MG PO (10:53)
[2022-06-27] MEDS ORDERED: SYNTHROID25 MCG PO (10:53)
[2022-06-27] MEDS ORDERED: FOLIC ACID1 MG PO (10:55)
[2022-06-27] MEDS ORDERED: COMBIVENT RESPIM4 GM INH (10:55)
[2022-06-27] MEDS ORDERED: NORCO 5-325 TA1 EACH PO (11:06)
[2022-06-27] MEDS ORDERED: SYMBICORT INH (11:10)
--- NOTE | 2022-06-27 11:40 | NUR ---
06/27/22 Ms. Reyes lives alone. She has 02 @ 2L, portable and rw (doesn't use rw). She is independent in the home and community. She recently changed from Dr. Cedillo to Dr. Wheat for PCP. - Ms. Reyes reports to be drinking 3 - 4 shots of bourbon per day due to pain. She is not interested in treatment programs or cessation. Ms. Reyes said she can stop drink when she wants.
[2022-06-27 14:12] LABS: BUN/CREAT RATIO (CALC) 8.8 RATIO; CREATININE 0.57 mg/dL (0.51-0.95); POTASSIUM 4.2 mmol/L (3.5-5.1)
[2022-06-28 06:46] LABS: BUN/CREAT RATIO (CALC) 9.6 RATIO; CREATININE 0.52 mg/dL (0.51-0.95); MAGNESIUM 1.8 mg/dL (1.8-2.4); POTASSIUM 3.5 mmol/L (3.5-5.1)
[2022-06-28 06:49] LABS: BASOPHIL 0.4 % (0-2); EOSINOPHIL 1.1 % (0-5); HCT 33.5 % (37.0-47.0); HGB 10.5 g/dl (12.5-16.0); LYMPHOCYTE 28.9 % (15-48); MCH 30.7 pg (25.0-31.0); MCHC 31.3 g/dL (32.0-36.0); MONOCYTE 9.6 % (0-12); MPV 9.1 fL (6.0-9.5); NEUTROPHIL 59.5 % (41-80); NRBC 0; PLT 326 K/uL (150-400); RBC 3.42 M/uL (4.20-5.40); RDW 13.9 % (11.5-14.0); WBC 5.6 K/uL (4.0-10.5)
[2022-06-28] MEDS ORDERED: NORCO 5-325 TA1 EACH PO (10:17)
[2022-06-28] MEDS ORDERED: PROTONIX 40MG T40 MG PO (10:17)
[2022-06-28] MEDS ORDERED: MOBIC7.5 MG PO (11:17)
[2022-06-28] MEDS ORDERED: ELIQUIS5 MG PO (11:17)
[2022-06-28] MEDS ORDERED: KETOROLAC TROME10 MG PO (11:18)
--- NOTE | 2022-06-28 13:30 | NUR ---
PT EDUCATED TO NOT DRINK WHILE TAKING PAIN MEDS, TO KEEP HER DOC APPTS; PT WAS TOLD TO STOP TAKING HER ELIQUIS, MOBIC, AND TORADOL; PT EDUCATED TO RESUME TAKING HER HOME MEDS. PT WAS DC'D HOME VIA W/C TO CAR. VERBALIZED UNDERSTANDING OF INSTRUCTIONS; IV WAS DC'D.
== END 2022-06-28 12:50 | disposition home or self-care (01) ==
LOC: FER 02:49 → FICU 09:09
PROVIDERS: Emergency Medicine; Internal Medicine; Student in an Organized Health Care Education/Training Program; ADMIT Internal Medicine
DX: K29.61 Other gastritis with bleeding (principal); K62.89 Other specified diseases of anus and rectum; K64.4 Residual hemorrhoidal skin tags; K86.9 Disease of pancreas, unspecified; Z20.822 Contact with and (suspected) exposure to COVID-19; I10 Essential (primary) hypertension; J44.9 Chronic obstructive pulmonary disease, unspecified; E78.5 Hyperlipidemia, unspecified; E03.9 Hypothyroidism, unspecified; F17.210 Nicotine dependence, cigarettes, uncomplicated; F41.9 Anxiety disorder, unspecified; F32.A Depression, unspecified; F10.129 Alcohol abuse with intoxication, unspecified; Z79.01 Long term (current) use of anticoagulants; Z79.899 Other long term (current) drug therapy
CPT/HCPCS: 36415; 70450; 74170; 78278; 80048; 80053; 80305; 82270; 83690; 83735; 84484; 85014; 85018; 85025; 85610; 85730; 93005; 94640; 94760; A4641; A9560; C9113; G0378; G0480; J1630; J1885; J2060; J2270; J2704; J3411; J3475; J3480; J7030; J7050; J7120; Q9967; U0002